=== PATIENT | male | born 1945 | race Caucasian/White ===

== ENCOUNTER → 2017-04-07 | Outpatient (CLI) | payer OTHER, BC ==
[~2017-04-07] MED LIST: Cardizem CD,Cartia X PO; Lasix PO; Percocet 5/325,Endoc PO; Pradaxa PO; Prevacid PO; Toprol XL PO
== END | disposition home or self-care (01) ==
LOC: NUC 09:42
DX: N28.89 Other specified disorders of kidney and ureter (principal); Z96.642 Presence of left artificial hip joint; R93.7 Abnormal findings on diagnostic imaging of other parts of musculoskeletal system
CPT/HCPCS: 78306; A9503

== ENCOUNTER 2017-06-05 22:01 | Inpatient (IN) | payer OTHER, BC ==
[~2017-06-05] VITALS: Ht 180.3 cm; Wt 127.6 kg
[~2017-06-05 22:01] MED LIST changes: +ALLEGRA ALLERG180 MG PO; +COMPAZINE10 MG PO; +GLIMEPIRIDE2 MG PO; +GLUCOTROL5 MG PO; +LASIX40 MG PO; +LEXAPRO10 MG PO; +LO-DOSE ASPIRIN81 M1 PO; +MELATONIN10 M1 PO; +METFORMIN HCL500 MG PO; +MYRBETRIQ25 MG PO; +ONDANSETRON HCL8 MG PO; +PRAVASTATIN SOD10 MG PO; +PREVACID30 MG PO; +TOPROL XL200 MG PO; +TOVIAZ4 MG PO; +TRAZODONE HCL50 MG PO; +TYLENOL EXTRA500 MG PO; +VITAMIN B-12 51 EACH SL; +XARELTO20 MG PO; +ZYRTEC10 M2 PO
[2017-06-06 06:18] VITALS: BP 141/78
[2017-06-06 15:21] LABS: HEMATOCRIT 29.3 % (38.0-50.0); HEMOGLOBIN 9.3 G/DL (12.5-16.6); MCH 29.3 PG (29.0-34.0); MCHC 31.7 G/DL (30.0-36.0); MCV 92.4 FL (86-99); PLATELET COUNT 117 K/uL (156-360); RBC DIS.WIDTH-CV 14.9 % (11.8-14.6); RBC DIS.WIDTH-SD 50.6 % (39-53); RED BLOOD COUNT 3.17 M/uL (4.00-5.50); WHITE BLOOD COUNT 13.2 K/uL (4.1-10.2)
[2017-06-06 15:57] LABS: CHLORIDE 106 MEQ/L (99-109); CREATININE 1.6 MG/DL (0.6-1.3); GFR ESTIMATE (CALCULATED) 46 mL/min/ (58.99-99999); GLUCOSE 216 mg/dL (70-99); POTASSIUM 4.4 MEQ/L (3.7-5.4); SODIUM 140 MEQ/L (136-147); UREA NITROGEN (BUN) 16 mg/dL (9-23)
[2017-06-06 16:36] VITALS: BP 111/66
[2017-06-06 20:07] VITALS: BP 102/58
[2017-06-07] VITALS (7 sets, daily range): BP systolic 105–121; BP diastolic 55–70
[2017-06-07 07:38] LABS: HEMATOCRIT 28.4 % (38.0-50.0); MCHC 31.7 G/DL (30.0-36.0); MCV 94.7 FL (86-99); PLATELET COUNT 135 K/uL (156-360); RBC DIS.WIDTH-CV 15.4 % (11.8-14.6); WHITE BLOOD COUNT 13.8 K/uL (4.1-10.2)
[2017-06-07 08:07] LABS: CHLORIDE 106 MEQ/L (99-109); GFR ESTIMATE (CALCULATED) 27 mL/min/ (58.99-99999); GLUCOSE 157 mg/dL (70-99); POTASSIUM 4.7 MEQ/L (3.7-5.4); SODIUM 143 MEQ/L (136-147)
[2017-06-07 08:10] LABS: CREATININE 2.5 MG/DL (0.6-1.3); UREA NITROGEN (BUN) 25 mg/dL (9-23)
[2017-06-08 03:00] VITALS: BP 114/66
[2017-06-08 06:29] LABS: HEMATOCRIT 26.2 % (38.0-50.0); HEMOGLOBIN 8.2 G/DL (12.5-16.6); MCH 29.1 PG (29.0-34.0); MCHC 31.3 G/DL (30.0-36.0); MCV 92.9 FL (86-99); PLATELET COUNT 125 K/uL (156-360); RBC DIS.WIDTH-CV 15.1 % (11.8-14.6); RBC DIS.WIDTH-SD 51.1 % (39-53); RED BLOOD COUNT 2.82 M/uL (4.00-5.50); WHITE BLOOD COUNT 14.5 K/uL (4.1-10.2)
[2017-06-08 06:57] LABS: CHLORIDE 102 MEQ/L (99-109); CREATININE 2.1 MG/DL (0.6-1.3); GFR ESTIMATE (CALCULATED) 33 mL/min/ (58.99-99999); GLUCOSE 120 mg/dL (70-99); POTASSIUM 4.1 MEQ/L (3.7-5.4); UREA NITROGEN (BUN) 28 mg/dL (9-23)
[2017-06-08 06:58] LABS: SODIUM 135 MEQ/L (136-147)
[2017-06-08 08:00] VITALS: BP 114/62
[2017-06-08 09:02] LABS: ALBUMIN 2.6 G/DL (3.2-4.8); ALKALINE PHOSPHATASE 31 IU/L (3-129); ALT (GPT) 9 IU/L (3-49); AST (GOT) 12 IU/L (2-34); DIRECT BILIRUBIN 0.1 mg/dL (0.0-0.3); TOTAL BILIRUBIN 0.5 MG/DL (0.0-1.0); TOTAL PROTEIN 4.6 G/DL (6.4-8.3)
[2017-06-08 15:19] VITALS: BP 109/59
[2017-06-08 15:58] VITALS: BP 121/65
[2017-06-08 20:27] VITALS: BP 107/69
[2017-06-09 00:10] VITALS: BP 137/74
[2017-06-09 04:00] VITALS: BP 132/78
[2017-06-09 05:47] LABS: HEMATOCRIT 24.2 % (38.0-50.0); HEMOGLOBIN 7.7 G/DL (12.5-16.6); MCH 29.2 PG (29.0-34.0); MCHC 31.8 G/DL (30.0-36.0); MCV 91.7 FL (86-99); PLATELET COUNT 135 K/uL (156-360); RBC DIS.WIDTH-SD 50.4 % (39-53); RED BLOOD COUNT 2.64 M/uL (4.00-5.50); WHITE BLOOD COUNT 11.4 K/uL (4.1-10.2)
[2017-06-09 07:30] VITALS: BP 119/67
[2017-06-09 08:06] LABS: CHLORIDE 100 MEQ/L (99-109); CREATININE 1.8 MG/DL (0.6-1.3); GFR ESTIMATE (CALCULATED) 40 mL/min/ (58.99-99999); GLUCOSE 99 mg/dL (70-99); POTASSIUM 3.6 MEQ/L (3.7-5.4); SODIUM 136 MEQ/L (136-147); UREA NITROGEN (BUN) 29 mg/dL (9-23)
[2017-06-09 11:28] VITALS: BP 121/76
[2017-06-09 15:40] VITALS: BP 127/86
[2017-06-09 20:24] VITALS: BP 129/78
[2017-06-10 00:54] VITALS: BP 116/67
[2017-06-10 04:00] VITALS: BP 97/62
[2017-06-10 06:34] LABS: HEMATOCRIT 25.1 % (38.0-50.0); HEMOGLOBIN 8.1 G/DL (12.5-16.6); MCH 29.7 PG (29.0-34.0); MCHC 32.3 G/DL (30.0-36.0); MCV 91.9 FL (86-99); NRBC (%) 0.2 /100 WBC (0-0); RBC DIS.WIDTH-CV 15.2 % (11.8-14.6); RBC DIS.WIDTH-SD 50.5 % (39-53); RED BLOOD COUNT 2.73 M/uL (4.00-5.50); WHITE BLOOD COUNT 11.6 K/uL (4.1-10.2)
[2017-06-10 06:43] LABS: PLATELET COUNT 180 K/uL (156-360)
[2017-06-10 07:03] LABS: CHLORIDE 104 MEQ/L (99-109); GFR ESTIMATE (CALCULATED) 35 mL/min/ (58.99-99999); POTASSIUM 3.8 MEQ/L (3.7-5.4); SODIUM 139 MEQ/L (136-147); UREA NITROGEN (BUN) 28 mg/dL (9-23)
[2017-06-10 07:04] LABS: GLUCOSE 159 mg/dL (70-99)
[2017-06-10 07:05] VITALS: BP 122/73
[2017-06-10 11:00] VITALS: BP 107/59
[2017-06-10 16:09] VITALS: BP 120/78
[2017-06-10 23:10] VITALS: BP 110/68
[2017-06-11 06:19] LABS: HEMATOCRIT 27.5 % (38.0-50.0); HEMOGLOBIN 8.8 G/DL (12.5-16.6); MCH 28.9 PG (29.0-34.0); MCV 90.2 FL (86-99); NRBC (%) 0.2 /100 WBC (0-0); PLATELET COUNT 201 K/uL (156-360); RBC DIS.WIDTH-CV 15.2 % (11.8-14.6); RBC DIS.WIDTH-SD 49.8 % (39-53); RED BLOOD COUNT 3.05 M/uL (4.00-5.50); WHITE BLOOD COUNT 10.3 K/uL (4.1-10.2)
[2017-06-11 06:43] LABS: CHLORIDE 108 MEQ/L (99-109); CREATININE 1.7 MG/DL (0.6-1.3); GFR ESTIMATE (CALCULATED) 43 mL/min/ (58.99-99999); GLUCOSE 183 mg/dL (70-99); POTASSIUM 4.1 MEQ/L (3.7-5.4); SODIUM 141 MEQ/L (136-147); UREA NITROGEN (BUN) 25 mg/dL (9-23)
[2017-06-11 07:04] VITALS: BP 132/75
[2017-06-11 15:15] VITALS: BP 128/85
[2017-06-12 00:21] VITALS: BP 158/83
[2017-06-12 07:15] VITALS: BP 135/76
[2017-06-12 10:32] LABS: HEMATOCRIT 29.2 % (38.0-50.0); HEMOGLOBIN 9.1 G/DL (12.5-16.6); MCH 28.4 PG (29.0-34.0); MCHC 31.2 G/DL (30.0-36.0); MCV 91.3 FL (86-99); NRBC (%) 0.2 /100 WBC (0-0); PLATELET COUNT 244 K/uL (156-360); RBC DIS.WIDTH-CV 15.5 % (11.8-14.6); RBC DIS.WIDTH-SD 50.9 % (39-53); WHITE BLOOD COUNT 11.4 K/uL (4.1-10.2)
[2017-06-12 12:34] LABS: CHLORIDE 109 MEQ/L (99-109); POTASSIUM 4.3 MEQ/L (3.7-5.4); SODIUM 141 MEQ/L (136-147)
[2017-06-12 12:40] LABS: CREATININE 1.7 MG/DL (0.6-1.3); GFR ESTIMATE (CALCULATED) 43 mL/min/ (58.99-99999); GLUCOSE 156 mg/dL (70-99); UREA NITROGEN (BUN) 24 mg/dL (9-23)
[2017-06-12 15:11] VITALS: BP 127/68
[2017-06-12 23:00] VITALS: BP 131/82
[2017-06-13 05:49] LABS: HEMATOCRIT 27.5 % (38.0-50.0); HEMOGLOBIN 8.8 G/DL (12.5-16.6); MCH 29.2 PG (29.0-34.0); MCV 91.4 FL (86-99); PLATELET COUNT 247 K/uL (156-360); RBC DIS.WIDTH-CV 15.6 % (11.8-14.6); RBC DIS.WIDTH-SD 51.6 % (39-53); RED BLOOD COUNT 3.01 M/uL (4.00-5.50); WHITE BLOOD COUNT 11.5 K/uL (4.1-10.2)
[2017-06-13 05:50] LABS: NRBC (%) 0.4 /100 WBC (0-0)
[2017-06-13 06:17] LABS: CREATININE 1.6 MG/DL (0.6-1.3); GFR ESTIMATE (CALCULATED) 46 mL/min/ (58.99-99999); GLUCOSE 188 mg/dL (70-99); UREA NITROGEN (BUN) 23 mg/dL (9-23)
[2017-06-13 06:20] LABS: CHLORIDE 108 MEQ/L (99-109); SODIUM 140 MEQ/L (136-147)
[2017-06-13 07:16] VITALS: BP 136/84
[2017-06-13 15:30] VITALS: BP 110/67
[2017-06-13 16:30] LABS: HEMATOCRIT 26.9 % (38.0-50.0); HEMOGLOBIN 8.6 G/DL (12.5-16.6); MCV 91.8 FL (86-99)
[2017-06-14 00:07] VITALS: BP 127/77
[2017-06-14 06:14] LABS: HEMATOCRIT 25.8 % (38.0-50.0); HEMOGLOBIN 8.1 G/DL (12.5-16.6); MCH 28.5 PG (29.0-34.0); MCHC 31.4 G/DL (30.0-36.0); MCV 90.8 FL (86-99); NRBC (%) 0.3 /100 WBC (0-0); PLATELET COUNT 260 K/uL (156-360); RBC DIS.WIDTH-CV 15.4 % (11.8-14.6); RBC DIS.WIDTH-SD 50.9 % (39-53); RED BLOOD COUNT 2.84 M/uL (4.00-5.50); WHITE BLOOD COUNT 8.9 K/uL (4.1-10.2)
[2017-06-14 06:41] LABS: CHLORIDE 108 MEQ/L (99-109); CREATININE 1.1 MG/DL (0.6-1.3); GFR ESTIMATE (CALCULATED) > 59 mL/min/ (58.99-99999); GLUCOSE 151 mg/dL (70-99); POTASSIUM 3.3 MEQ/L (3.7-5.4); SODIUM 139 MEQ/L (136-147); UREA NITROGEN (BUN) 15 mg/dL (9-23)
[2017-06-14 07:21] VITALS: BP 117/66
[2017-06-14 12:26] LABS: CHLORIDE 109 MEQ/L (99-109); GFR ESTIMATE (CALCULATED) > 59 mL/min/ (58.99-99999); GLUCOSE 149 mg/dL (70-99); POTASSIUM 3.6 MEQ/L (3.7-5.4); SODIUM 140 MEQ/L (136-147); UREA NITROGEN (BUN) 15 mg/dL (9-23)
[2017-06-14 15:06] VITALS: BP 129/72
[2017-06-14 23:23] VITALS: BP 126/74
[2017-06-15 06:15] LABS: HEMATOCRIT 26.1 % (38.0-50.0); HEMOGLOBIN 8.1 G/DL (12.5-16.6); MCH 28.3 PG (29.0-34.0); MCV 91.3 FL (86-99); NRBC (%) 0.2 /100 WBC (0-0); PLATELET COUNT 276 K/uL (156-360); RBC DIS.WIDTH-CV 15.4 % (11.8-14.6); RBC DIS.WIDTH-SD 51.2 % (39-53); RED BLOOD COUNT 2.86 M/uL (4.00-5.50); WHITE BLOOD COUNT 9.7 K/uL (4.1-10.2)
[2017-06-15 06:42] LABS: CHLORIDE 110 MEQ/L (99-109); CREATININE 0.9 MG/DL (0.6-1.3); GFR ESTIMATE (CALCULATED) > 59 mL/min/ (58.99-99999); GLUCOSE 140 mg/dL (70-99); SODIUM 141 MEQ/L (136-147); UREA NITROGEN (BUN) 16 mg/dL (9-23)
[2017-06-15 07:42] VITALS: BP 130/72
[2017-06-15 15:43] VITALS: BP 130/71
[2017-06-15 22:39] VITALS: BP 117/64
[2017-06-16 06:56] LABS: HEMATOCRIT 26.1 % (38.0-50.0); HEMOGLOBIN 7.9 G/DL (12.5-16.6); MCH 27.8 PG (29.0-34.0); MCHC 30.3 G/DL (30.0-36.0); MCV 91.9 FL (86-99); NRBC (%) 0.2 /100 WBC (0-0); PLATELET COUNT 278 K/uL (156-360); RBC DIS.WIDTH-CV 15.7 % (11.8-14.6); RED BLOOD COUNT 2.84 M/uL (4.00-5.50); WHITE BLOOD COUNT 11.1 K/uL (4.1-10.2)
[2017-06-16 07:25] VITALS: BP 149/77
[2017-06-16 07:36] LABS: CHLORIDE 109 MEQ/L (99-109); CREATININE 1.2 MG/DL (0.6-1.3); GFR ESTIMATE (CALCULATED) > 59 mL/min/ (58.99-99999); GLUCOSE 140 mg/dL (70-99); SODIUM 141 MEQ/L (136-147); UREA NITROGEN (BUN) 20 mg/dL (9-23)
[2017-06-16] MEDS ORDERED: OXAYDO5 MG PO (11:49)
== END 2017-06-16 12:00 | disposition home health service (06) | DRG 654 ==
LOC: ENRESERV 22:01 → 2EAST 06-06 05:46 → 2SOUTH 06-06 05:46 → ENRESERV 06-06 15:24 → 2EAST 06-06 16:16
PROVIDERS: Physician Assistant Surgical; Urology
PROC: 0VT00ZZ Resection of Prostate, Open Approach (ICD-10-PCS; principal; 2017-06-06)
PROC: 0T180ZC Bypass Bilateral Ureters to Ileocutaneous, Open Approach (ICD-10-PCS; principal; 2017-06-06)
PROC: 07TC0ZZ Resection of Pelvis Lymphatic, Open Approach (ICD-10-PCS; principal; 2017-06-06)
PROC: 0TRB07Z Replacement of Bladder with Autologous Tissue Substitute, Open Approach (ICD-10-PCS; principal; 2017-06-06)
PROC: 0TTB0ZZ Resection of Bladder, Open Approach (ICD-10-PCS; principal; 2017-06-06)
PROC: 0DTJ0ZZ Resection of Appendix, Open Approach (ICD-10-PCS; principal; 2017-06-06)
DX: C67.0 Malignant neoplasm of trigone of bladder (principal); C77.5 Secondary and unspecified malignant neoplasm of intrapelvic lymph nodes; N13.30 Unspecified hydronephrosis; I48.1 Persistent atrial fibrillation; E11.22 Type 2 diabetes mellitus with diabetic chronic kidney disease; N18.9 Chronic kidney disease, unspecified; G47.33 Obstructive sleep apnea (adult) (pediatric); K21.9 Gastro-esophageal reflux disease without esophagitis; E66.9 Obesity, unspecified; E78.5 Hyperlipidemia, unspecified; R06.6 Hiccough; Z96.642 Presence of left artificial hip joint; Z87.891 Personal history of nicotine dependence; Z79.82 Long term (current) use of aspirin; Z79.01 Long term (current) use of anticoagulants; Z80.42 Family history of malignant neoplasm of prostate; Z68.39 Body mass index [BMI] 39.0-39.9, adult
CPT/HCPCS: 74176; 80048; 80048 91; 80076; 82330; 82948; 85014; 85018; 85027; 88302; 88305; 88309; 94799; 97530 GO; 97530 GP; 99214; C2625; C9113; J0610; J1100; J1160; J1170; J1644; J1815; J2250; J2405; J2765; J2795; J3010; J3480; J7040; J7050; J7120; P9047; S0074

== ENCOUNTER 2017-08-04 17:43 | Inpatient (IN) | payer OTHER, BC ==
[~2017-08-04] VITALS: Ht 180.3 cm; Wt 112.9 kg
[~2017-08-04 17:43] MED LIST changes: +CYANOCOBALAM1000 MCG PO; +OXAYDO5 MG PO; +PRAVACHOL20 MG PO; -PRAVASTATIN SOD10 MG PO; +TYLENOL ARTHRI650 MG PO; -TYLENOL EXTRA500 MG PO; -VITAMIN B-12 51 EACH SL
[2017-08-04 18:16] LABS: BASOPHIL (%) 0.2 % (0-1); EOSINOPHIL (%) 0.3 % (0-5); HEMATOCRIT 35.6 % (38.0-50.0); IMMATURE GRANULOCYTE (%) 0.8 % (0.0-0.7); LYMPHOCYTE (%) 3.5 % (15-42); LYMPHOCYTE COUNT 0.4 K/uL (1.0-2.8); MCH 25.7 PG (29.0-34.0); MCHC 30.9 G/DL (30.0-36.0); MONOCYTE (%) 1.7 % (3-12); MONOCYTE COUNT 0.2 K/uL (0-0.8); NEUTROPHIL (%) 93.5 % (45-76); NEUTROPHIL COUNT 10.1 K/uL (1.8-6.4); PLATELET COUNT 221 K/uL (156-360); RBC DIS.WIDTH-CV 17.4 % (11.8-14.6); RBC DIS.WIDTH-SD 52.9 % (39-53); WHITE BLOOD COUNT 10.8 K/uL (4.1-10.2)
[2017-08-04 18:18] LABS: INTER. NORMALIZED RATIO 1.4
[2017-08-04 18:19] LABS: ALBUMIN 3.5 g/dL (3.2-4.8); CHLORIDE 102 mEq/L (99-109); POTASSIUM 5.4 mEq/L (3.7-5.4); SODIUM 134 mEq/L (136-147)
[2017-08-04 18:20] LABS: MAGNESIUM 2.2 mg/dL (1.3-2.7); MCV 83.2 FL (86-99); PTT 27.7 SEC (25-37); RED BLOOD COUNT 4.28 M/uL (4.00-5.50)
[2017-08-04 18:21] LABS: GLUCOSE 189 mg/dL (70-99); TOTAL PROTEIN 7.3 g/dL (6.4-8.3)
[2017-08-04 18:23] LABS: TOTAL BILIRUBIN 0.4 mg/dL (0.0-1.0)
[2017-08-04 18:25] LABS: ALKALINE PHOSPHATASE 63 IU/L (3-129); CREATININE 1.5 mg/dL (0.6-1.3); GFR ESTIMATE (CALCULATED) 49 mL/min/ (58.99-99999)
[2017-08-04 18:26] LABS: UREA NITROGEN (BUN) 27 mg/dL (9-23)
[2017-08-04 18:27] LABS: AST (GOT) 34 IU/L (2-34)
[2017-08-04 18:28] LABS: ALT (GPT) 16 IU/L (3-49)
[2017-08-04 18:30] LABS: TROP-I INTERPRETATION NEGATIVE; TROPONIN-I < 0.01 ng/mL (0.0-0.30)
[2017-08-04 18:45] LABS: APPEARANCE CLOUDY ((CLEAR)); BILIRUBIN NEGATIVE; BLOOD LARGE; COLOR YELLOW ((YELLOW)); GLUCOSE (STRIP) NEGATIVE; KETONES NEGATIVE; LEUKOCYTES LARGE; NITRITE POSITIVE; PROTEIN (STRIP) 30; SPECIFIC GRAVITY 1.013 (1.000-1.030); UROBILINOGEN 0.2 MG/DL (0.2-1.0)
[2017-08-04] MEDS ORDERED: NASACORT10.8 ML BOTH NARES (18:54)
[2017-08-04] MEDS ORDERED: ONDANSETRON HCL8 MG PO (18:55)
[2017-08-04 19:00] LABS: RED BLOOD CELLS 20-30 /HPF (0-5); WHITE BLOOD CELLS TNTC /HPF (0-5)
[2017-08-04 19:01] LABS: BACTERIA 1+ /HPF; EPITHELIAL CELLS 1+ /HPF; MUCUS NONE SEEN /LPF; UCUL ADDED? YES
[2017-08-05] VITALS (7 sets, daily range): BP systolic 95–136; BP diastolic 55–70
[2017-08-05 05:49] LABS: HEMATOCRIT 30.2 % (38.0-50.0); HEMOGLOBIN 8.8 G/DL (12.5-16.6); MCHC 29.1 G/DL (30.0-36.0); MCV 85.8 FL (86-99); PLATELET COUNT 160 K/uL (156-360); RBC DIS.WIDTH-CV 17.3 % (11.8-14.6); RBC DIS.WIDTH-SD 54.7 % (39-53); RED BLOOD COUNT 3.52 M/uL (4.00-5.50); WHITE BLOOD COUNT 15.6 K/uL (4.1-10.2)
[2017-08-05 05:58] LABS: CHLORIDE 106 MEQ/L (99-109); CREATININE 1.5 MG/DL (0.6-1.3); GFR ESTIMATE (CALCULATED) 49 mL/min/ (58.99-99999); GLUCOSE 216 mg/dL (70-99); SODIUM 136 MEQ/L (136-147); UREA NITROGEN (BUN) 27 mg/dL (9-23)
[2017-08-06 03:14] VITALS: BP 121/70
[2017-08-06 07:58] LABS: HEMATOCRIT 30.1 % (38.0-50.0); MCH 25.3 PG (29.0-34.0); MCHC 29.9 G/DL (30.0-36.0); MCV 84.6 FL (86-99); PLATELET COUNT 161 K/uL (156-360); RBC DIS.WIDTH-CV 17.2 % (11.8-14.6); RBC DIS.WIDTH-SD 53.8 % (39-53); RED BLOOD COUNT 3.56 M/uL (4.00-5.50); WHITE BLOOD COUNT 11.8 K/uL (4.1-10.2)
[2017-08-06 08:19] LABS: CHLORIDE 112 MEQ/L (99-109); GFR ESTIMATE (CALCULATED) > 59 mL/min/ (58.99-99999); GLUCOSE 123 mg/dL (70-99); POTASSIUM 4.1 MEQ/L (3.7-5.4); SODIUM 140 MEQ/L (136-147); UREA NITROGEN (BUN) 19 mg/dL (9-23)
[2017-08-06 08:27] VITALS: BP 131/67
[2017-08-06 12:59] VITALS: BP 136/80
[2017-08-06 15:43] VITALS: BP 142/83
[2017-08-06 19:32] LABS: C DIFF TOXIN NEGATIVE (NEGATIVE)
[2017-08-06 19:39] VITALS: BP 137/81
[2017-08-06 23:31] VITALS: BP 146/74
[2017-08-07 04:17] VITALS: BP 135/91
[2017-08-07 05:27] LABS: HEMATOCRIT 29.2 % (38.0-50.0); HEMOGLOBIN 8.8 G/DL (12.5-16.6); MCH 25.6 PG (29.0-34.0); MCHC 30.1 G/DL (30.0-36.0); MCV 84.9 FL (86-99); NRBC (%) 0.4 /100 WBC (0-0); PLATELET COUNT 186 K/uL (156-360); RBC DIS.WIDTH-CV 17.3 % (11.8-14.6); RBC DIS.WIDTH-SD 54.1 % (39-53); RED BLOOD COUNT 3.44 M/uL (4.00-5.50); WHITE BLOOD COUNT 8.3 K/uL (4.1-10.2)
[2017-08-07 06:05] LABS: CHLORIDE 113 MEQ/L (99-109); GFR ESTIMATE (CALCULATED) > 59 mL/min/ (58.99-99999); GLUCOSE 110 mg/dL (70-99); POTASSIUM 3.9 MEQ/L (3.7-5.4); SODIUM 141 MEQ/L (136-147); UREA NITROGEN (BUN) 13 mg/dL (9-23)
[2017-08-07 07:31] VITALS: BP 146/82
[2017-08-07 15:57] VITALS: BP 143/92
[2017-08-07 20:26] VITALS: BP 147/86
[2017-08-07 23:56] VITALS: BP 145/91
[2017-08-08] VITALS (7 sets, daily range): BP systolic 139–167; BP diastolic 88–98
[2017-08-08 09:22] LABS: BASOPHIL (%) 0.4 % (0-1); EOSINOPHIL (%) 2.1 % (0-5); EOSINOPHIL COUNT 0.2 K/uL (0-0.3); HEMATOCRIT 32.2 % (38.0-50.0); HEMOGLOBIN 9.6 G/DL (12.5-16.6); IMMATURE GRANULOCYTE (%) 1.8 % (0.0-0.7); LYMPHOCYTE (%) 15.5 % (15-42); LYMPHOCYTE COUNT 1.1 K/uL (1.0-2.8); MCH 25.3 PG (29.0-34.0); MCHC 29.8 G/DL (30.0-36.0); MONOCYTE (%) 6.4 % (3-12); MONOCYTE COUNT 0.5 K/uL (0-0.8); NEUTROPHIL (%) 73.8 % (45-76); NEUTROPHIL COUNT 5.3 K/uL (1.8-6.4); PLATELET COUNT 207 K/uL (156-360); RBC DIS.WIDTH-CV 17.3 % (11.8-14.6); RED BLOOD COUNT 3.79 M/uL (4.00-5.50); WHITE BLOOD COUNT 7.2 K/uL (4.1-10.2)
[2017-08-08 09:56] LABS: CHLORIDE 113 MEQ/L (99-109); GFR ESTIMATE (CALCULATED) > 59 mL/min/ (58.99-99999); GLUCOSE 150 mg/dL (70-99); POTASSIUM 4.3 MEQ/L (3.7-5.4); SODIUM 143 MEQ/L (136-147); UREA NITROGEN (BUN) 12 mg/dL (9-23)
[2017-08-09 03:39] VITALS: BP 154/95
[2017-08-09 08:29] VITALS: BP 165/86
[2017-08-09 09:04] LABS: BASOPHIL (%) 0.2 % (0-1); EOSINOPHIL COUNT 0.1 K/uL (0-0.3); HEMATOCRIT 33.8 % (38.0-50.0); IMMATURE GRANULOCYTE (%) 1.5 % (0.0-0.7); MCH 24.8 PG (29.0-34.0); MCHC 29.6 G/DL (30.0-36.0); MCV 83.9 FL (86-99); MONOCYTE (%) 6.3 % (3-12); MONOCYTE COUNT 0.6 K/uL (0-0.8); NEUTROPHIL COUNT 7.9 K/uL (1.8-6.4); PLATELET COUNT 214 K/uL (156-360); RBC DIS.WIDTH-CV 17.2 % (11.8-14.6); RBC DIS.WIDTH-SD 53.1 % (39-53); RED BLOOD COUNT 4.03 M/uL (4.00-5.50); WHITE BLOOD COUNT 9.7 K/uL (4.1-10.2)
[2017-08-09 09:29] LABS: CHLORIDE 111 MEQ/L (99-109); CREATININE 1.4 MG/DL (0.6-1.3); GFR ESTIMATE (CALCULATED) 53 mL/min/ (58.99-99999); GLUCOSE 120 mg/dL (70-99); POTASSIUM 4.3 MEQ/L (3.7-5.4); SODIUM 140 MEQ/L (136-147); UREA NITROGEN (BUN) 13 mg/dL (9-23)
[2017-08-09 11:56] VITALS: BP 134/88
[2017-08-09 15:44] VITALS: BP 144/82
[2017-08-09 20:00] VITALS: BP 163/87
[2017-08-10] VITALS (7 sets, daily range): BP systolic 144–177; BP diastolic 83–99
[2017-08-11 03:36] VITALS: BP 164/93
[2017-08-11 08:16] VITALS: BP 152/96
[2017-08-11 19:42] VITALS: BP 143/92
[2017-08-12 00:18] VITALS: BP 130/80
[2017-08-12 03:50] VITALS: BP 144/80
[2017-08-12 07:37] VITALS: BP 130/85
[2017-08-12 11:57] VITALS: BP 133/83
[2017-08-12 16:15] VITALS: BP 176/92
[2017-08-12 20:00] VITALS: BP 137/94
[2017-08-13] VITALS: BP 178/85
[2017-08-13 04:00] VITALS: BP 167/95
[2017-08-13 07:59] VITALS: BP 179/92
[2017-08-13 18:13] VITALS: BP 175/99
[2017-08-13 19:47] VITALS: BP 156/96
[2017-08-14] VITALS: BP 155/92
[2017-08-14 03:57] VITALS: BP 157/102
[2017-08-14 08:00] VITALS: BP 160/84
[2017-08-14 10:35] LABS: HEMATOCRIT 34.1 % (38.0-50.0); HEMOGLOBIN 10.4 G/DL (12.5-16.6); MCH 24.7 PG (29.0-34.0); MCHC 30.5 G/DL (30.0-36.0); PLATELET COUNT 242 K/uL (156-360); RBC DIS.WIDTH-CV 17.2 % (11.8-14.6); RBC DIS.WIDTH-SD 50.8 % (39-53); RED BLOOD COUNT 4.21 M/uL (4.00-5.50); WHITE BLOOD COUNT 10.4 K/uL (4.1-10.2)
[2017-08-14 11:03] LABS: ALKALINE PHOSPHATASE 34 IU/L (3-129); ALT (GPT) 6 IU/L (3-49); AST (GOT) 9 IU/L (2-34); CHLORIDE 103 MEQ/L (99-109); CREATININE 1.4 MG/DL (0.6-1.3); GFR ESTIMATE (CALCULATED) 53 mL/min/ (58.99-99999); GLUCOSE 146 mg/dL (70-99); POTASSIUM 3.6 MEQ/L (3.7-5.4); SODIUM 141 MEQ/L (136-147); TOTAL BILIRUBIN 0.3 MG/DL (0.0-1.0); TOTAL PROTEIN 5.8 G/DL (6.4-8.3); UREA NITROGEN (BUN) 17 mg/dL (9-23)
[2017-08-14 17:02] VITALS: BP 170/72
[2017-08-14 17:54] LABS: HEMATOCRIT 30.8 % (38.0-50.0); HEMOGLOBIN 9.4 G/DL (12.5-16.6); MCV 81.5 FL (86-99)
[2017-08-14 20:18] VITALS: BP 150/98
[2017-08-15 00:27] VITALS: BP 145/93
[2017-08-15 04:25] VITALS: BP 139/93
[2017-08-15 06:50] LABS: HEMOGLOBIN 9.4 G/DL (12.5-16.6); MCV 82.7 FL (86-99)
[2017-08-15 07:23] VITALS: BP 140/80
[2017-08-15 08:28] LABS: CHLORIDE 107 MEQ/L (99-109); CREATININE 1.4 MG/DL (0.6-1.3); GFR ESTIMATE (CALCULATED) 53 mL/min/ (58.99-99999); GLUCOSE 132 mg/dL (70-99); POTASSIUM 3.6 MEQ/L (3.7-5.4); SODIUM 144 MEQ/L (136-147); UREA NITROGEN (BUN) 17 mg/dL (9-23)
[2017-08-15 08:44] LABS: BASOPHIL (%) 0.3 % (0-1); EOSINOPHIL (%) 0.8 % (0-5); EOSINOPHIL COUNT 0.1 K/uL (0-0.3); IMMATURE GRANULOCYTE (%) 0.5 % (0.0-0.7); LYMPHOCYTE (%) 13.4 % (15-42); LYMPHOCYTE COUNT 0.8 K/uL (1.0-2.8); MCH 25.2 PG (29.0-34.0); MCHC 30.2 G/DL (30.0-36.0); MONOCYTE (%) 7.3 % (3-12); MONOCYTE COUNT 0.5 K/uL (0-0.8); NEUTROPHIL (%) 77.7 % (45-76); NEUTROPHIL COUNT 4.9 K/uL (1.8-6.4); PLATELET COUNT 208 K/uL (156-360); RBC DIS.WIDTH-CV 17.4 % (11.8-14.6); RBC DIS.WIDTH-SD 53.2 % (39-53); RED BLOOD COUNT 3.81 M/uL (4.00-5.50); WHITE BLOOD COUNT 6.3 K/uL (4.1-10.2)
[2017-08-15 11:59] VITALS: BP 160/90
[2017-08-15 12:41] LABS: MAGNESIUM 1.8 mg/dl (1.3-2.7)
[2017-08-15 16:00] VITALS: BP 162/82
[2017-08-15 17:59] LABS: HEMATOCRIT 31.3 % (38.0-50.0); HEMOGLOBIN 9.2 G/DL (12.5-16.6); MCV 83.2 FL (86-99)
[2017-08-15 19:26] VITALS: BP 144/82
[2017-08-16] VITALS (7 sets, daily range): BP systolic 102–142; BP diastolic 74–85
[2017-08-16 06:34] LABS: HEMATOCRIT 29.8 % (38.0-50.0); HEMOGLOBIN 8.8 G/DL (12.5-16.6); MCV 83.7 FL (86-99)
[2017-08-16 07:32] LABS: BASOPHIL (%) 0.2 % (0-1); EOSINOPHIL (%) 0.8 % (0-5); IMMATURE GRANULOCYTE (%) 0.6 % (0.0-0.7); LYMPHOCYTE COUNT 0.8 K/uL (1.0-2.8); MCH 24.9 PG (29.0-34.0); MCHC 29.7 G/DL (30.0-36.0); MONOCYTE (%) 8.8 % (3-12); MONOCYTE COUNT 0.5 K/uL (0-0.8); NEUTROPHIL (%) 73.6 % (45-76); NEUTROPHIL COUNT 3.9 K/uL (1.8-6.4); PLATELET COUNT 169 K/uL (156-360); RBC DIS.WIDTH-CV 17.2 % (11.8-14.6); RBC DIS.WIDTH-SD 52.9 % (39-53); RED BLOOD COUNT 3.58 M/uL (4.00-5.50); WHITE BLOOD COUNT 5.3 K/uL (4.1-10.2)
[2017-08-16 07:47] LABS: CHLORIDE 111 MEQ/L (99-109); GFR ESTIMATE (CALCULATED) > 59 mL/min/ (58.99-99999); GLUCOSE 120 mg/dL (70-99); POTASSIUM 3.6 MEQ/L (3.7-5.4); SODIUM 145 MEQ/L (136-147); UREA NITROGEN (BUN) 12 mg/dL (9-23)
[2017-08-16 08:31] LABS: MAGNESIUM 1.8 mg/dl (1.3-2.7)
[2017-08-17 00:11] VITALS: BP 142/86
[2017-08-17 03:45] VITALS: BP 124/84
[2017-08-17 07:22] LABS: HEMATOCRIT 28.8 % (38.0-50.0); HEMOGLOBIN 8.5 G/DL (12.5-16.6); MCH 24.7 PG (29.0-34.0); MCHC 29.5 G/DL (30.0-36.0); MCV 83.7 FL (86-99); PLATELET COUNT 158 K/uL (156-360); RBC DIS.WIDTH-CV 17.2 % (11.8-14.6); RBC DIS.WIDTH-SD 52.6 % (39-53); RED BLOOD COUNT 3.44 M/uL (4.00-5.50); WHITE BLOOD COUNT 3.9 K/uL (4.1-10.2)
[2017-08-17 07:46] LABS: CHLORIDE 112 MEQ/L (99-109); CREATININE 0.9 MG/DL (0.6-1.3); GFR ESTIMATE (CALCULATED) > 59 mL/min/ (58.99-99999); GLUCOSE 122 mg/dL (70-99); POTASSIUM 3.5 MEQ/L (3.7-5.4); SODIUM 147 MEQ/L (136-147); UREA NITROGEN (BUN) 10 mg/dL (9-23)
[2017-08-17 08:00] VITALS: BP 128/68
[2017-08-17 09:04] LABS: VANCOMYCIN, TROUGH < 2.0 MCG/ML (10-20)
[2017-08-17 11:53] VITALS: BP 134/70
[2017-08-17 12:11] LABS: HEMATOCRIT 29.2 % (38.0-50.0); HEMOGLOBIN 8.5 G/DL (12.5-16.6); MCV 82.5 FL (86-99)
[2017-08-17 16:31] VITALS: BP 158/86
[2017-08-17 20:38] VITALS: BP 128/89
[2017-08-18 00:15] VITALS: BP 142/83
[2017-08-18 04:27] VITALS: BP 141/79
[2017-08-18 06:02] LABS: HEMATOCRIT 30.1 % (38.0-50.0); HEMOGLOBIN 8.6 G/DL (12.5-16.6); MCH 24.2 PG (29.0-34.0); MCHC 28.6 G/DL (30.0-36.0); MCV 84.8 FL (86-99); RBC DIS.WIDTH-SD 53.5 % (39-53); RED BLOOD COUNT 3.55 M/uL (4.00-5.50); WHITE BLOOD COUNT 3.9 K/uL (4.1-10.2)
[2017-08-18 06:34] LABS: ALBUMIN 2.6 G/DL (3.2-4.8); ALKALINE PHOSPHATASE 30 IU/L (3-129); ALT (GPT) 6 IU/L (3-49); AST (GOT) 10 IU/L (2-34); CHLORIDE 111 MEQ/L (99-109); CREATININE 0.8 MG/DL (0.6-1.3); GFR ESTIMATE (CALCULATED) > 59 mL/min/ (58.99-99999); GLUCOSE 153 mg/dL (70-99); POTASSIUM 3.6 MEQ/L (3.7-5.4); SODIUM 141 MEQ/L (136-147); UREA NITROGEN (BUN) 10 mg/dL (9-23)
[2017-08-18 06:36] LABS: TOTAL BILIRUBIN 0.2 MG/DL (0.0-1.0)
[2017-08-18 06:43] LABS: ANISOCYTOSIS 1+; BASOPHIL (%) 0.5 % (0-1); EOSINOPHIL (%) 1.3 % (0-5); EOSINOPHIL COUNT 0.1 K/uL (0-0.3); IMMATURE GRANULOCYTE (%) 0.8 % (0.0-0.7); LYMPHOCYTE COUNT 0.9 K/uL (1.0-2.8); MICROCYTOSIS 1+; MONOCYTE (%) 10.2 % (3-12); MONOCYTE COUNT 0.4 K/uL (0-0.8); NEUTROPHIL (%) 64.2 % (45-76); NEUTROPHIL COUNT 2.5 K/uL (1.8-6.4); PLAT.SUFFICIENCY ADEQUATE; PLATELET CLUMPS PRESENT - PLATELET COUNT APPEARS ADQ.
[2017-08-18 06:46] LABS: PLATELET COUNT UNABLE TO REPORT K/uL (156-360)
[2017-08-18 07:08] LABS: DIRECT BILIRUBIN 0.1 mg/dL (0.0-0.3); PHOSPHORUS 2.8 mg/dL (2.5-4.9); PREALBUMIN 9.6 mg/dL (10-40); TRIGLYCERIDES 140 MG/DL (Normal: <150)
[2017-08-18 08:02] VITALS: BP 155/96
[2017-08-18 11:57] VITALS: BP 144/78
[2017-08-18 16:02] VITALS: BP 128/82
[2017-08-18 23:25] VITALS: BP 164/88
[2017-08-19 03:28] VITALS: BP 159/86
[2017-08-19 07:50] VITALS: BP 142/86
[2017-08-19 07:50] LABS: CHLORIDE 114 MEQ/L (99-109); CREATININE 0.8 MG/DL (0.6-1.3); GFR ESTIMATE (CALCULATED) > 59 mL/min/ (58.99-99999); GLUCOSE 152 mg/dL (70-99); MAGNESIUM 1.9 mg/dl (1.3-2.7); POTASSIUM 4.1 MEQ/L (3.7-5.4); SODIUM 144 MEQ/L (136-147); UREA NITROGEN (BUN) 14 mg/dL (9-23)
[2017-08-19 07:54] LABS: HEMATOCRIT 31.5 % (38.0-50.0); MCH 24.4 PG (29.0-34.0); MCHC 28.6 G/DL (30.0-36.0); MCV 85.4 FL (86-99); RBC DIS.WIDTH-SD 52.8 % (39-53); RED BLOOD COUNT 3.69 M/uL (4.00-5.50); WHITE BLOOD COUNT 5.1 K/uL (4.1-10.2)
[2017-08-19 07:56] LABS: PLATELET COUNT 168 K/uL (156-360)
[2017-08-19 11:24] VITALS: BP 132/76
[2017-08-19 19:00] VITALS: BP 154/105
[2017-08-20] VITALS (13 sets, daily range): BP systolic 117–155; BP diastolic 61–98
[2017-08-20 04:27] LABS: HEMATOCRIT 38.6 % (38.0-50.0); MCH 24.7 PG (29.0-34.0); MCHC 29.8 G/DL (30.0-36.0); MCV 82.8 FL (86-99); PLATELET COUNT 214 K/uL (156-360); RBC DIS.WIDTH-CV 16.9 % (11.8-14.6); RBC DIS.WIDTH-SD 50.4 % (39-53)
[2017-08-20 04:28] LABS: HEMOGLOBIN 11.5 G/DL (12.5-16.6); RED BLOOD COUNT 4.66 M/uL (4.00-5.50)
[2017-08-20 04:36] LABS: CHLORIDE 114 mEq/L (99-109)
[2017-08-20 04:37] LABS: SODIUM 139 mEq/L (136-147)
[2017-08-20 04:44] LABS: CREATININE 1.9 mg/dL (0.6-1.3); GFR ESTIMATE (CALCULATED) 38 mL/min/ (58.99-99999); GLUCOSE 247 mg/dL (70-99); POTASSIUM 5.8 mEq/L (3.7-5.4); UREA NITROGEN (BUN) 33 mg/dL (9-23)
[2017-08-20 07:54] LABS: POTASSIUM 5.6 MEQ/L (3.7-5.4)
[2017-08-20 09:21] LABS: MAGNESIUM 2.1 mg/dl (1.3-2.7); PHOSPHORUS 4.6 mg/dL (2.5-4.9)
[2017-08-20 13:11] LABS: TROP-I INTERPRETATION NEGATIVE; TROPONIN-I 0.02 ng/mL (0.0-0.30)
[2017-08-20 20:27] LABS: CHLORIDE 112 MEQ/L (99-109); GLUCOSE 216 mg/dL (70-99); POTASSIUM 5.7 MEQ/L (3.7-5.4); SODIUM 138 MEQ/L (136-147)
[2017-08-20 20:29] LABS: CREATININE 2.8 MG/DL (0.6-1.3); GFR ESTIMATE (CALCULATED) 24 mL/min/ (58.99-99999); UREA NITROGEN (BUN) 51 mg/dL (9-23)
[2017-08-21] VITALS (14 sets, daily range): BP systolic 110–155; BP diastolic 73–96
[2017-08-21 05:46] LABS: HEMATOCRIT 29.9 % (38.0-50.0); MCH 24.2 PG (29.0-34.0); MCHC 29.4 G/DL (30.0-36.0); MCV 82.4 FL (86-99); PLATELET COUNT 172 K/uL (156-360); RBC DIS.WIDTH-CV 17.2 % (11.8-14.6); RBC DIS.WIDTH-SD 52.2 % (39-53); WHITE BLOOD COUNT 7.5 K/uL (4.1-10.2)
[2017-08-21 05:47] LABS: HEMOGLOBIN 8.8 G/DL (12.5-16.6); RED BLOOD COUNT 3.63 M/uL (4.00-5.50)
[2017-08-21 06:15] LABS: CHLORIDE 111 MEQ/L (99-109); GLUCOSE 192 mg/dL (70-99); MAGNESIUM 2.1 mg/dl (1.3-2.7); PHOSPHORUS 3.7 mg/dL (2.5-4.9); POTASSIUM 4.6 MEQ/L (3.7-5.4); SODIUM 143 MEQ/L (136-147); UREA NITROGEN (BUN) 45 mg/dL (9-23)
[2017-08-21 06:16] LABS: CREATININE 1.9 MG/DL (0.6-1.3); GFR ESTIMATE (CALCULATED) 38 mL/min/ (58.99-99999)
[2017-08-21 12:27] LABS: HEMATOCRIT 29.1 % (38.0-50.0); HEMOGLOBIN 8.5 G/DL (12.5-16.6); MCH 23.9 PG (29.0-34.0); MCHC 29.2 G/DL (30.0-36.0); PLATELET COUNT 165 K/uL (156-360); RBC DIS.WIDTH-CV 17.3 % (11.8-14.6); RBC DIS.WIDTH-SD 53.1 % (39-53); RED BLOOD COUNT 3.55 M/uL (4.00-5.50); WHITE BLOOD COUNT 6.5 K/uL (4.1-10.2)
[2017-08-21 12:51] LABS: CHLORIDE 111 MEQ/L (99-109); CREATININE 1.5 MG/DL (0.6-1.3); GFR ESTIMATE (CALCULATED) 49 mL/min/ (58.99-99999); GLUCOSE 206 mg/dL (70-99); SODIUM 144 MEQ/L (136-147); UREA NITROGEN (BUN) 37 mg/dL (9-23)
[2017-08-22] VITALS (15 sets, daily range): BP systolic 136–176; BP diastolic 85–120
[2017-08-22 05:36] LABS: HEMATOCRIT 27.2 % (38.0-50.0); HEMOGLOBIN 8.2 G/DL (12.5-16.6); MCH 24.6 PG (29.0-34.0); MCHC 30.1 G/DL (30.0-36.0); MCV 81.4 FL (86-99); PLATELET COUNT 154 K/uL (156-360); RBC DIS.WIDTH-CV 17.2 % (11.8-14.6); RBC DIS.WIDTH-SD 51.2 % (39-53); RED BLOOD COUNT 3.34 M/uL (4.00-5.50); WHITE BLOOD COUNT 5.9 K/uL (4.1-10.2)
[2017-08-22 05:53] LABS: ALBUMIN 2.1 G/DL (3.2-4.8); ALKALINE PHOSPHATASE 52 IU/L (3-129); ALT (GPT) 11 IU/L (3-49); AST (GOT) 13 IU/L (2-34); CHLORIDE 111 MEQ/L (99-109); DIRECT BILIRUBIN 0.2 mg/dL (0.0-0.3); GLUCOSE 208 mg/dL (70-99); MAGNESIUM 1.9 mg/dl (1.3-2.7); POTASSIUM 3.6 MEQ/L (3.7-5.4); SODIUM 145 MEQ/L (136-147); TOTAL PROTEIN 4.8 G/DL (6.4-8.3); TRIGLYCERIDES 119 MG/DL (Normal: <150); UREA NITROGEN (BUN) 27 mg/dL (9-23)
[2017-08-22 05:56] LABS: GFR ESTIMATE (CALCULATED) > 59 mL/min/ (58.99-99999); PREALBUMIN 4.5 mg/dL (10-40); TOTAL BILIRUBIN 0.3 MG/DL (0.0-1.0)
[2017-08-22 06:15] LABS: ABS NEUTROPHIL COUNT 4.8; ANISOCYTOSIS 1+; BAND NEUTROPHILS 18.4 % (0-8.0); EOSINOPHIL ABS CT 0.1; EOSINOPHILS 1.8 % (0-5.0); HYPOCHROMASIA 1+; LYMPHOCYTES 10.5 % (15.0-45.0); MICROCYTOSIS 1+; MONOCYTES 6.1 % (0-9.0); OVALOCYTES 1+; PLAT.SUFFICIENCY DECREASED; POIKILOCYTOSIS 1+; SCHISTOCYTES 1+; SEG.NEUTROPHILS 63.2 % (46.0-76.0); TEAR DROP CELLS 1+
[2017-08-22 22:11] LABS: TROP-I INTERPRETATION NEGATIVE; TROPONIN-I 0.01 ng/mL (0.0-0.30)
[2017-08-22 22:21] LABS: ALBUMIN 2.4 G/DL (3.2-4.8); ALKALINE PHOSPHATASE 102 IU/L (3-129); ALT (GPT) 24 IU/L (3-49); AST (GOT) 29 IU/L (2-34); CHLORIDE 110 MEQ/L (99-109); CREATININE 0.9 MG/DL (0.6-1.3); GFR ESTIMATE (CALCULATED) > 59 mL/min/ (58.99-99999); GLUCOSE 156 mg/dL (70-99); MAGNESIUM 1.7 mg/dl (1.3-2.7); PHOSPHORUS 3.5 mg/dL (2.5-4.9); POTASSIUM 3.5 MEQ/L (3.7-5.4); SODIUM 144 MEQ/L (136-147); TOTAL BILIRUBIN 0.4 MG/DL (0.0-1.0); TOTAL PROTEIN 5.7 G/DL (6.4-8.3); UREA NITROGEN (BUN) 20 mg/dL (9-23)
[2017-08-23] VITALS (13 sets, daily range): BP systolic 131–165; BP diastolic 88–111
[2017-08-23 05:34] LABS: HEMATOCRIT 27.9 % (38.0-50.0); HEMOGLOBIN 8.1 G/DL (12.5-16.6); MCH 23.7 PG (29.0-34.0); MCV 81.6 FL (86-99); NRBC (%) 0.3 /100 WBC (0-0); PLATELET COUNT 165 K/uL (156-360); RBC DIS.WIDTH-CV 17.2 % (11.8-14.6); RBC DIS.WIDTH-SD 51.9 % (39-53); RED BLOOD COUNT 3.42 M/uL (4.00-5.50); WHITE BLOOD COUNT 6.1 K/uL (4.1-10.2)
[2017-08-23 06:00] LABS: CHLORIDE 110 MEQ/L (99-109); GFR ESTIMATE (CALCULATED) > 59 mL/min/ (58.99-99999); GLUCOSE 194 mg/dL (70-99); MAGNESIUM 1.8 mg/dl (1.3-2.7); PHOSPHORUS 3.1 mg/dL (2.5-4.9); POTASSIUM 3.8 MEQ/L (3.7-5.4); SODIUM 146 MEQ/L (136-147); UREA NITROGEN (BUN) 21 mg/dL (9-23)
== END 2017-08-23 20:18 | disposition short-term general hospital (02) | DRG 856 ==
LOC: EME 17:43 → 5SOUTH 20:12 → 4EAST 20:12 → 4WEST 20:12 → EDOF 20:12 → ENRESERV 20:14 → 4SOUTH 08-05 00:17 → EDOF 08-05 00:17 → ENRESERV 08-05 00:24 → 4EAST 08-05 00:58 → ENRESERV 08-06 11:04 → 5SOUTH 08-06 13:13 → ENRESERV 08-19 16:52 → 4EAST 08-19 18:09 → ENRESERV 08-20 18:09 → 4WEST 08-20 18:10
PROVIDERS: Emergency Medicine; Family Medicine; Hospitalist; Internal Medicine; Internal Medicine Cardiovascular Disease; Internal Medicine Pulmonary Disease; Physician Assistant; Physician Assistant Medical; Surgery
PROC: 3E0436Z Introduction of Nutritional Substance into Central Vein, Percutaneous Approach (ICD-10-PCS; 2017-08-18)
PROC: 0DN80ZZ Release Small Intestine, Open Approach (ICD-10-PCS; 2017-08-19)
PROC: 0DBV0ZX Excision of Mesentery, Open Approach, Diagnostic (ICD-10-PCS; 2017-08-19)
PROC: 0TJB0ZZ Inspection of Bladder, Open Approach (ICD-10-PCS; 2017-08-19)
PROC: 02HV33Z Insertion of Infusion Device into Superior Vena Cava, Percutaneous Approach (ICD-10-PCS; 2017-08-22)
DX: T81.4XXA Infection following a procedure, initial encounter (principal); Y83.2 Surgical operation with anastomosis, bypass or graft as the cause of abnormal reaction of the patient, or of later complication, without mention of misadventure at the time of the procedure; A41.81 Sepsis due to Enterococcus; R65.20 Severe sepsis without septic shock; N39.0 Urinary tract infection, site not specified; T80.211A Bloodstream infection due to central venous catheter, initial encounter; Y83.8 Other surgical procedures as the cause of abnormal reaction of the patient, or of later complication, without mention of misadventure at the time of the procedure; N17.9 Acute kidney failure, unspecified; E86.0 Dehydration; I48.2 Chronic atrial fibrillation; E87.2 Acidosis; M62.830 Muscle spasm of back; R19.7 Diarrhea, unspecified; R31.0 Gross hematuria; K59.00 Constipation, unspecified; K56.7 Ileus, unspecified; B37.7 Candidal sepsis; E87.6 Hypokalemia; E83.42 Hypomagnesemia; K56.50 Intestinal adhesions [bands], unspecified as to partial versus complete obstruction; E44.0 Moderate protein-calorie malnutrition; T83.2 Mechanical complication of graft of urinary organ; R18.8 Other ascites; C67.9 Malignant neoplasm of bladder, unspecified; C77.5 Secondary and unspecified malignant neoplasm of intrapelvic lymph nodes; N13.30 Unspecified hydronephrosis; I13.0 Hypertensive heart and chronic kidney disease with heart failure and stage 1 through stage 4 chronic kidney disease, or unspecified chronic kidney disease; I50.9 Heart failure, unspecified; N18.3 Chronic kidney disease, stage 3 (moderate); E11.22 Type 2 diabetes mellitus with diabetic chronic kidney disease; D64.9 Anemia, unspecified; E53.8 Deficiency of other specified B group vitamins; K21.9 Gastro-esophageal reflux disease without esophagitis; G47.33 Obstructive sleep apnea (adult) (pediatric); J44.9 Chronic obstructive pulmonary disease, unspecified; E78.5 Hyperlipidemia, unspecified; I87.8 Other specified disorders of veins; E66.9 Obesity, unspecified; I25.10 Atherosclerotic heart disease of native coronary artery without angina pectoris; Z96.642 Presence of left artificial hip joint; Z87.891 Personal history of nicotine dependence; Z79.01 Long term (current) use of anticoagulants; Z79.82 Long term (current) use of aspirin; Z85.828 Personal history of other malignant neoplasm of skin; Z90.79 Acquired absence of other genital organ(s); Z90.6 Acquired absence of other parts of urinary tract; Z68.34 Body mass index [BMI] 34.0-34.9, adult; Z93.6 Other artificial openings of urinary tract status; Z75.1 Person awaiting admission to adequate facility elsewhere
CPT/HCPCS: 50433; 71045; 74018; 74019; 74176; 76770; 76937; 80048; 80048 91; 80053; 80076; 80170; 80202; 81003; 82248; 82272; 82330; 82948; 83605; 83735; 83880; 84100; 84132 91; 84134; 84478; 84484; 84540; 84630 90; 85014; 85018; 85025; 85027; 85610; 85730; 86850; 86900; 86901; 86920; 87040; 87070; 87076; 87077; 87086; 87106; 87149; 87149 59; 87186; 87186 90; 87493; 87641; 87801; 88305; 88331; 93005; 93306; 93312; 93325; 94660; 94799; 99281; 99285; C1729; C1751; C1753; C1769; C9113; J0131; J0290; J0692; J0780; J1100; J1160; J1170; J1450; J1580; J1644; J1815; J1940; J2060; J2248; J2250; J2405; J2543; J2710; J3010; J3370; J3475; J3480; J7030; J7040; J7042; J7050; J7070; J7120; J7643